=== PATIENT | female | born 1995 | race Caucasian/White ===

== ENCOUNTER 2018-12-13 07:49 | Day surgery (SDC) | payer OTHER | END 2018-12-13 16:01 | disposition home or self-care (01) | LOC: FSGY 07:49 ==

== ENCOUNTER 2018-12-20 05:42 | Inpatient (IN) | payer OTHER ==
--- NOTE | 2018-12-19 21:21 | PDGENHP ---
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 ~Ludinenjoys biking, skiing, walking distances, running and hiking. Miroslava's~right~hip pain~started 3 years ago she was decending a 14er (Ming and~ Kandymarylumarlene), with~no~recalled trauma or injury, and with~no~previous complaints.~ Ludindoes not have~a known history of hip dysplasia. Miroslava has been evaluated by Dr. Maldonado's PA, Dr. Leo and Dr. Grady. Presentation today is of~C-Shaped pattern~right~hip pain. ~The hip~does not~ wake her~at night and~does~click and catch on~her. Sitting~does not present a problem~for her.~Ludindoes~report suffering from lower back pain episodes. Ludinhas~participated in physical therapy (a couple months)~and has~tried other conservative measures including Cortisone~hip injection~(unclear about the efficacy)~,dry needling and massage therapy.~She~has not~received sufficient symptomatic improvement. Miroslava~has~utilized medication for pain management, including NSAID and OTC acetaminophen.~Ludinhas used medication since the pain began. Ludindenies issues with the left~hip. ~ Ludinunderstands that~beverly~has a hip and pelvis problem which should be researched and wishes to get a better understanding of~her~hip status, followed by an establishment of a treatment strategy, hoping~beverly~would be able to get back to~her~well being active life. History: Past medical history:~~ None which is relevant~ Relevant familial history:~None which is relevant~ Past surgical history:~ None Ludinhas never received general anesthesia. I have reviewed, verified and agree with the past medical, surgical, family and social history. Current Medications:~currently has no medications in their medication list. ALLERGIES:~is allergic to sulfa (sulfonamide antibiotics). Objective: Physical Examination: Ludinis 5~feet~5~inches tall and weighs~120~Lbs. Ludinis AAO x3; she~is well- nourished, in NAD. Skin is warm and dry. ~Breathing is non-labored. ~CV with RRR by pulse. Abdomen is soft, NTND. Currently,~she~walks with a~abnormal~antalgic gait favoring LEFT side Trendelenburg sign is~negative~and proprioception~is normal,~both~sides. She~presents~with mild~signs of joint laxity.~Beightons Score:~2 (elbows) Lower spine examination is~negative~for sciatic or femoral nerve irritation with negative~SLR &~femoral stretch tests. Range of motion of the spine is normal~for flexion, extension, and rotations,~with no~associated pain. Strength, Sensation and pulses are~normal -~bilaterally Ankles and knees exams are~normal~and~no~mal-alignment is evident.~ She~has~no leg length discrepancy. Thigh circumference is~symmetric~with no evidence for muscle atrophy~on both~ sides. Hip ROM (degrees): FL ER At 90~hip FL IR At 90~hip FL AB AD EX IR Neutral hip ER Neutral hip R 105 45 40 30 5 5 60 25 L 110 45 35 30 5 5 55 10 Specific hip and pelvis tests: Impingement Test KARLA Roll Add. Longus R +++ +++ Negative Negative L + + Negative Negative Glut. Med ITB Posterior Imp R +++ 5/5 strength +++ 5/5 strength Negative L ++ 5/5 strength ++ 5/5 strength Negative Squeeze test measured~normal Bony Symphysis pubis is~pain free~to touch while concentric activity of the rectus abdominis, does not~produce pain at its insertion. Ilio Psos specific tests are~positive for pain during cycling for~the right hip~ and no snap HF has~weakness no pain~the right hip. Greater trochanteric burse is~pain free~on both hips. Piriformis tests: FAIR is~negative,~with no~local signs of neuritis related to sciatic nerve. SIJs examination is~produces pain on~right side~with~normal~KARLA in relation and local tenderness. Hamstrings tests are~negative~functional contraction and negative~tendinopathy both hips. On a daily basis, the following percentages reflectBria's overall total pain: Deep hip:~80% SIJ:~15% GT: 5% Imaging: Radiology studies which I~have personally reviewed, analyzed and measured are below: XR: AP of the hip and pelvis: Performed in a~good~technique Coccyx~at level of~pubic symphysis Standing~ [place]~Lines are preserved. Minimal~Pathological signs are seen in the Symphysis Pubis.~ Minimal~Pathological signs are seen at the Ischial~tuberosity. ~ Specific measurements show: NSA~ LCE Sourcil~Angle Sharp's angle Lat. Cam Lat. Pincer C.Over~sign Head~Coverage % ATDmm R N 28 0 38 - - - 85 N L N 25 4 45 - - - 85 N Capsule crater sign Pos. wall sign ISS NAD ~~Dysplasia Comments R Negative Negative 18.2~mm Negative L Negative Negative 15.5~mm Negative Sclerosis Sup. Lat. OA Cysts Joint Space-WBZ Joint Space-Medial R Negative Negative Negative 3.1~mm 3.2~mm L Negative Negative Negative 3.0~mm 3.9~mm X Table lateral: Anterior cam lesion is~seen~on both hips. Alpha Angle: ~ Right~52~dergrees Left~50~degrees CT / 3D:~ MEASUREMENTS: Right hip: Lateral center edge angle: 33 degrees Anterior center edge angle: 51 degrees Equatorial acetabular version angle: 27 degrees anteverted. Cranial acetabular version angle: 20 degrees anteverted. Femoral neck shaft angle: 143 degrees Femoral neck version angle: Anteverted 18 degrees Femoral shaft torsion angle: +32 degrees Left hip: Lateral center edge angle: 27 degrees Anterior center edge angle: 48 degrees Equatorial acetabular version angle: 22 degrees anteverted. Cranial acetabular version angle: 18 degrees anteverted. Femoral neck shaft angle: 143 degrees Femoral neck version angle: Anteverted 20 degrees Femoral shaft torsion angle: +28 degrees Impression and plan:~ Miroslava~is a~22 y.o.~active female~suffering from symptomatic~Right~hip pain due to Borderline~hip~dysplasia ~Due to anterior instability~and~Femoroacetabular impingement (MARCO)~Cam type,~with~resultant labral tear causing significant disability to~her~and altering~her~sport and life activities. Physical examination, imaging, and~her~story correspond with the diagnosis mentioned above. I explained that hip dysplasia is a condition wherein the hip joint has excessive play~and instability due to a variety of factors, including the depth and adequacy of the socket, the orientation of the femur bone, and ligament laxity around the hip joint. Dysplasia ranges in severity from borderline to neto, with treatment options being specific to the specific nature of the problem. Left untreated, the instability in the hip joint can cause progressive tearing of the labrum and deterioration of the surface cartilage, ultimately resulting in progressive osteoarthritis of the hip. I explained that femoroacetabular impingement (MARCO - Cam type) arises due to a bony or soft tissue conflict between the femur (ball) and acetabulum (socket) caused by an abnormality in the shape of the femoral head and neck. Over time, repetitive impingement can result in damage to the labrum and adjacent surface cartilage within the socket, ultimately giving rise to progressive osteoarthritis of the hip. I explained that although a labral tear can be a source of pain, it is rarely the root of the problem and typically occurs secondary to an underlying abnormality in the shape and mechanics of the hip joint. I reviewed conservative treatment options for Dysplasia and MARCO including activity modification to avoid positions of impingement or instability, physical therapy, non-steroidal anti-inflammatory medications, and various injections (corticosteroid and PRP) aimed at reducing inflammation in the hip joint or/and preventing dynamic instability and impingement. PRP injections may promote healing and reduce symptoms in certain cases but it will not repair chronically damaged tissue. Although these measures may help to buy time~and reduce current level of symptoms, they are not a definitive solution to the problem given the underlying abnormality in the shape of the hip joint. Patients who have failed conservative management and continue to experience symptoms are candidates for definitive surgical treatment, which may consist of hip arthroscopy alone or in combination with more invasive bony realignment procedures of the hip socket and/or femur called periacetabular osteotomy (KEVEN) or derotational femoral osteotomy (DFO). Hip arthroscopy typically includes treating the labrum with either repair or reconstruction of the torn labrum; as well as addressing the underlying abnormalities by restoring the normal shape to the hip joint. If the cartilage is damaged a Microfracture surgical procedure may also be necessary to help stimulate the growth of fibrocartilage. If a patient requires a labral reconstruction or a Microfracture, the initial rehabilitation from the surgery may take longer, but the terminal clerk results are typically favorable. I reviewed the technical aspects of periacetabular osteotomy (KEVEN) including risks, benefits, and expected course of recovery.~Miroslava~understands that KEVEN is an inpatient procedure carried out through two medium sized incisions on the front and back of the hip joint. The hip socket is cut, realigned, and stabilized with 2 3 internal screws. Risks include infection, bleeding, injury to nearby nerves or vessels, stiffness, persistent pain, instability, failure of bony healing, implant related complications, and venous thromboembolic disease. Rarely, revision surgery may be required to address these problems. Risks, potential complications, side effects and recovery from surgical procedure were discussed in length. We explained how this surgery is an open procedure, and though patients tend to do well in the long-term, it involves significant pain in the first 2-4 weeks post-op and a rather lengthy rehab.~Overall recovery takes approximately 6 12~months depending on the extent of damage and degree of repair. Miroslava~understands that she~will undergo hip arthroscopy 1 week prior to the KEVEN to address damage inside the hip joint. Miroslava~understands that hip arthroscopy and KEVEN are two separate procedures that are best performed one week apart, with the arthroscopy commencing first to "tighten up" any pathology evident in the hip joint (labral repair, etc.) and the KEVEN open procedure occurring 7-10 days later to realign the acetabulum. We spoke at length about the different options Miroslava has moving forward: 1. Do nothing 2. Hip arthroscopy alone, knowing that this treatment strategy would not address her underlying~instability but may generate symptomatic relief, short or terminal clerk 3. Hip arthroscopy followed by KEVEN~or DFO+varus producing osteotomy~ Miroslava~will review the info presented. In order to better evaluate the soft tissues and cartilage of the hip joint, I will order a~current~RIGHT HIP~MRI scan. I suggest another quick visit to discuss strategy after this imaging is complete. Miroslava~will contact us if she~wishes to pursue further treatment in the future. Miroslava~is happy with this plan. I have also supplied~her~with handouts, outlining the expected surgical treatment and rehab involved. I wish~Miroslava~all the best, ~~ Bill Morgan, PAC History Information - Allergies/Home Medication List Allergies/Adverse Reactions: Sulfa (Sulfonamide Antibiotics) Allergy (Verified 12/02/18 15:58) Hives Home Medications: Ibuprofen [Motrin (*)] 200 mg PO DAILY PRN 12/02/18 [Last Taken 2 Weeks Ago ~] Ascorbic Acid [Vitamin C 500 mg (*)] 500 mg PO DAILY 12/08/18 [Last Taken 1 Week Ago ~12/06/18] Multivitamins [Multivitamin (*)] 1 each PO DAILY 12/08/18 [Last Taken 1 Week Ago ~12/06/18] I have personally reviewed and updated: medical history - Social History Smoking Status: Never smoked Review of Systems Review of Systems: Physical Exam Physical Exam:
[2018-12-20] MEDS ORDERED: LR 1,000 ML IV ONE (06:05)
[2018-12-20] MEDS ORDERED: LIDOCAINE 1% 2 ML INJ ID PRN (06:05)
[2018-12-20] MEDS ORDERED: TRANEXAMIC ACID 1,000 MG in NS 100 ML IV ONE (06:05)
[2018-12-20] MEDS ORDERED: ceFAZolin 2 GM/DEXTROSE 100 ML IV ONE (06:05)
[2018-12-20] MEDS ORDERED: PREGABALIN 150 MG CAP PO ONE (06:05)
[2018-12-20] MEDS ORDERED: SCOPOLAMINE HYDROBROMIDE 1 MG/3 DAYS PATCH TD ONE (06:05)
[2018-12-20] MEDS ORDERED: ACETAMINOPHEN 500 MG TAB PO ONE (06:05)
--- NOTE | 2018-12-20 06:44 | PDANEPAE ---
ANE History of Present Illness right hip dyplasia ANE Past Medical History - Cardiovascular History Hx Hypertension: No Hx Arrhythmias: No Hx Chest Pain: No Hx Coronary Artery / Peripheral Vascular Disease: No Hx CHF / Valvular Disease: No Hx Palpitations: No - Pulmonary History Hx COPD: No Hx Asthma/Reactive Airway Disease: No Hx Recent Upper Respiratory Infection: No Hx Oxygen in Use at Home: No Hx Sleep Apnea: No Sleep Apnea Screening Result - Last Documented: Negative - Neurologic History Hx Cerebrovascular Accident: No Hx Seizures: No Hx Dementia: No - Endocrine History Hx Diabetes: No Hypothyroid: No Hyperthyroid: No Obesity: no - Renal History Hx Renal Disorders: No - Liver History Hx Hepatic Disorders: No - Neurological & Psychiatric Hx Hx Neurological and Psychiatric Disorders: No - Cancer History Hx Cancer: No - Congenital Disorder History Hx Congenital Disorders: No - GI History GERD: no Hx Gastrointestinal Disorders: No - Other Health History Other Health History: wears glasses - Chronic Pain History Chronic Pain: Yes (RT HIP) - Surgical History Prior Surgeries: 12/13/18 right hip scope, femoroplasty and labral repair with Adry-Liam ANE Review of Systems Review of systems is: negative Review of Systems: - Exercise capacity METS (RN): 6 METS ANE Patient History - Allergies Allergies/Adverse Reactions: Sulfa (Sulfonamide Antibiotics) Allergy (Verified 12/02/18 15:58) Hives - Home Medications Home medications: home medication list seen and reviewed Home Medications: Ibuprofen [Motrin (*)] 200 mg PO DAILY PRN 12/02/18 [Last Taken 2 Weeks Ago ~] Ascorbic Acid [Vitamin C 500 mg (*)] 500 mg PO DAILY 12/08/18 [Last Taken 1 Week Ago ~12/06/18] Multivitamins [Multivitamin (*)] 1 each PO DAILY 12/08/18 [Last Taken 1 Week Ago ~12/06/18] - NPO status NPO Status: no food or drink >8 hours - Anes Hx Anes Hx: no prior problems - Smoking Hx Smoking Status: Never smoked - Alcohol Use Alcohol Use: None - Family Anes Hx Family Anes Hx: none Family Hx Anesthesia Complications: none ANE Labs/Vital Signs - Vital Signs Height: 165.1 cm Weight: 54.431 kg ANE Physical Exam - Airway Neck exam: FROM Mallampati Score: Class 2 Mouth exam: normal dental/mouth exam - Pulmonary Pulmonary: no respiratory distress, clear to auscultation - Cardiovascular Cardiovascular: regular rate and rhythym, no murmur, rub, or gallop - ASA Status ASA Status: I ANE Anesthesia Plan Anesthesia Plan: general endotracheal anesthesia
[2018-12-20] MEDS ORDERED: CITRATE DEXTROSE SOLN 500 ML BAG ONE (06:46)
[2018-12-20] MEDS ORDERED: MIDAZOLAM 2 MG/2 ML VIAL IVP ONE (06:50)
[2018-12-20] MEDS ORDERED: morphINE PF 5 MG/10 ML INJ ONE (07:04)
[2018-12-20] MEDS ORDERED: PROPOFOL/EMULSION 500 MG/50 ML BOTTLE IV ONE (07:04)
[2018-12-20] MEDS ORDERED: LIDOCAINE 2% 5 ML SDV ONE (07:06)
[2018-12-20] MEDS ORDERED: ROCURONIUM 100 MG/10 ML VIAL ONE ×2 (07:07→08:56)
[2018-12-20] MEDS ORDERED: ePHEDrine SULFATE 25 MG/5 ML SYR ONE (07:48)
[2018-12-20] MEDS ORDERED: PHENYLEPHRINE HCL 100 MCG/ML SYR ONE (08:58)
[2018-12-20] MEDS ORDERED: fentaNYL 250 MCG/5 ML INJ ONE (08:58)
[2018-12-20] MEDS ORDERED: ONDANSETRON 4 MG/2 ML VIAL ONE (11:28)
[2018-12-20] MEDS ORDERED: DEXAMETHASONE 4 MG/ML VIAL ONE (11:28)
[2018-12-20] MEDS ORDERED: GLYCOPYRROLATE 0.2 MG/1 ML VIAL ONE ×2 (11:34)
[2018-12-20] MEDS ORDERED: LR 500 ML IV PRN (11:38)
[2018-12-20] MEDS ORDERED: DIAZEPAM 5 MG/ML 1 ML SYR IVP PRN (11:38)
[2018-12-20] MEDS ORDERED: HYDROmorphONE/DILAUDID 2 MG/ML INJ IVP PRN (11:38)
[2018-12-20] MEDS ORDERED: NALOXONE HCL 0.4 MG/ML INJ IVP PRN ×2 (11:38→12:55)
[2018-12-20] MEDS ORDERED: fentaNYL 100 MCG/2 ML INJ IVP PRN (11:38)
--- NOTE | 2018-12-20 11:38 | POSTANESTH ---
Post Anesthetic Evaluation Cardiovascular Status: Normal, Stable Respiratory Status: Normal, Stable Level of Consciousness/Mental Status: Can Participate in Eval Pain Control: Adequate, Prn Tx Ordered Nausea/Vomiting Control: Adequate, Prn Tx Ordered Complications Possibly Related to Anesthesia: None Noted
[2018-12-20] MEDS ORDERED: LACTULOSE 20 GM/30 ML UDCUP PO PRN (12:55)
[2018-12-20] MEDS ORDERED: ONDANSETRON DISINTEGRATING 4 MG TAB PO PRN (12:55)
[2018-12-20] MEDS ORDERED: MAGNESIUM HYDROXIDE 30 ML UDCUP PO PRN (12:55)
[2018-12-20] MEDS ORDERED: diphenhydrAMINE 25 MG CAP PO PRN (12:55)
[2018-12-20] MEDS ORDERED: BISACODYL 10 MG SUPP PR PRN (12:55)
[2018-12-20] MEDS ORDERED: ONDANSETRON 4 MG/2 ML VIAL IVP PRN (12:55)
[2018-12-20] MEDS ORDERED: oxyCODONE IR 15 MG TAB PO PRN (12:58)
--- NOTE | 2018-12-20 13:07 | PDMN ---
Medical Necessity Medical necessity: Pt meets inpt criteria per MD order and Musculoskeltel disease GRG, op: R periacetabular osteotomy, [facility] IP only list, inpt pre- approval AUTH# [id number]. 22 y/o w/R hip dysplasia admitted for above surgery and post-op care.
[2018-12-20] MEDS: oxyCODONE IR 5 MG TAB PO SCH ×3 (13:36→21:49)
[2018-12-20] MEDS: HYDROmorphONE/DILAUDID 6 MG/30 ML PCA IV PRN (13:39)
[2018-12-20] MEDS: NS 1,000 ML IV SCH ×2 (13:46→21:49)
[2018-12-20] MEDS: NAPROXEN SODIUM 220 MG TAB PO SCH ×2 (15:51→21:48)
[2018-12-20] MEDS: [UNRECOGNIZED DRUG - OTHER] PO SCH (19:17)
[2018-12-20] MEDS: SENNOSIDES/DOCUSATE SODIUM TAB PO SCH (21:49)
--- NOTE | 2018-12-20 23:16 | SUROPNOTE ---
[facility] Operative Report - Surgery Surgery was performed at [facility] on~12/20/18~ Diagnosis:~Right 1. Hip Acetabular Dysplasia ~ Operation: Right~Vanessa Acetabular Osteotomy (KEVEN) Surgeon: Nico Lindsey MD Vinyl Installer:~~Galina Briones MD Anesthetic: General + spinal Procedure: General anesthetic. Antibiotics given. Cell saver in use. Fluoroscopy. Phase 1: Position lateral, diagonal skin incision between ischial tuberosity and greater trochanter as for posterior hip approach. Blunt split of glut max fibers. Identification of fat pad overlying sciatic nerve. Exposure of sciatic nerve under fat pad, gently retracting it away-medially to ischial tuberosity. Exposure of subcotoloid fossa proximal to short rotators. UsingPrecision saw, osteotomy of subcotoloid xvoiu19-16 mm short of (lateral to) thesciatic notch. Closure of lateral cut. Patient is turned supine. Phase 2: Skin incision just distal to ASIS. Using diathermy the iliac spine was exposed and inguinal ligament + Sartorious were retracted medially, taking the LFCN with them, protecting it. Inner ilium was dissected from iliacus muscle bluntly , with a cob and swab. Dissection continued towards lateral superior ramus pubis. Using fluoroscopy an osteotomy of lateral superior ramus, just medial to tear drop, was performed with~curved fish mouth osteotome. Phase 3: Osteotomy lines of the ilium were marked with diathermy as pre planned according to XR/CT and expected correction of acatabulum. 2 Shanz screws were drilled into central acetabular fragment, corresponding with planned correction angles, in order to mobilize central acetabular fragment after osteotomy is complete. ~Iliac osteotomy was performed with reciprocating saw and the main acetabular fragment was moved to realign weight bearing position. After confirmation of correction using fluoroscopy in AP and false profile planes, the fragment was fixed with 2 -~5.5mm~~full threaded~screws~and 1 -~4mm~~full threaded~screw. Inguinal ligament and Sartorious were attached back to ASIS through drill holes. Incision was closed according to soft tissue layers. Skin was closed with~subdermal Monocryl. Final fluoro shots were obtained to confirm position/correction. After surgery~Miroslava~moved both lower limbs and had no NV motor compromise. Specimen - none Bleeding -~300ml Complication -~135none Evaluation under anesthesia: IR at 90 degrees hip flexion prior to KEVEN was~45~degrees and after KEVEN was 30~ degrees. Bleeding:~300~cc into cell-saver, 135~of blood products were returned to patient. Post op instructions: 1.~toe touch~weight bearing till post op Xr then FWB~crutches for 6 weeks 2. Epidural analgesia for 24-48 hours 3. Continuous SCD 4. Aspirin 81 mg X1 day once Epidural is discontinued 5. Avoid hip flexion past 90 and hip External rotation. 6. PT according to my recommendations at follow up visit Kind regards, Dr. Nico Lindsey .
[2018-12-21] MEDS: oxyCODONE IR 5 MG TAB PO SCH ×7 (01:57→21:19)
[2018-12-21] MEDS: PANTOPRAZOLE SODIUM 40 MG TAB PO SCH (08:41)
[2018-12-21] MEDS: NAPROXEN SODIUM 220 MG TAB PO SCH ×3 (08:42→21:19)
[2018-12-21] MEDS: SENNOSIDES/DOCUSATE SODIUM TAB PO SCH ×2 (08:42→21:19)
[2018-12-21] MEDS: oxyCODONE IR 5 MG TAB PO PRN (10:37)
[2018-12-21] MEDS ORDERED: METHOCARBAMOL 750 MG TAB ONE (18:44)
--- NOTE | 2018-12-21 19:34 | GCON ---
[f rep st] CONSULTATION REFERRING PHYSICIAN: Nico Lindsey MD REASON FOR CONSULTATION: Medical management. HISTORY OF PRESENT ILLNESS: The patient is a 22-year-old female who has no significant past medical history, who had a periacetabular ostomy on the right side for ongoing hip dysplasia. She had a labral tear repair performed last week. 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 Normally, she is very active. She likes to hike, ski, mountain bike ride. She also did track in high school. During my interview, she is saying her pain is at a level 5 on a scale of 5 to 10. PAST MEDICAL HISTORY: None. PAST SURGICAL HISTORY: Briggs teeth extraction. SOCIAL HISTORY: She lives at home with her parents. 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 Her plan is to go to graduate school this fall to become an occupational therapist. She does not smoke. She enjoys an occasional glass of wine a few times a week. FAMILY HISTORY: Parents are healthy. ALLERGIES: Sulfa causes hives. REVIEW OF SYSTEMS: A 10-point review of systems was performed and was negative other than pertinent positives in HPI and past medical history. PHYSICAL EXAM: GENERAL: The patient is a 22-year-old female who appears to be an overall healthy person. VITAL SIGNS: Blood pressure is 98/45, respiratory rate is 18, heart rate is 78, O2 saturation on room air 94%, temperature is 97.9 Celsius. EYES: Pupils are equal and reactive. ENT: Normal ears, hearing intact. NECK: Trachea is midline. CARDIOVASCULAR: Regular rate and rhythm. No murmurs, rubs, or gallops noted. CHEST/LUNGS: Normal respiratory effort. Clear without wheezing or rales. ABDOMEN: Soft, nontender. She has a Maharaj catheter in place. SKIN: Warm and dry. Her right hip and upper thigh areas are swollen without any drainage from her incisions. MUSCULOSKELETAL: She is overall weak. PSYCHIATRIC: She is alert and oriented. Normal mood and affect. Normal judgment, insight and normal memory. DATA: Reviewed. I reviewed her laboratory data this morning, which showed some mild anemia. ASSESSMENT/PLAN: 1. Hip dysplasia, status post a right periacetabular osteotomy. Care per the surgical team. 2. Pain due to this. Will add p.r.n. Robaxin to see if this helps with the pain. She is using a INJURY/SAFETY HAZARD ASSESSMENT as well as oral pain med 4. Anemia expected blood loss. Will recheck her hemoglobin and hematocrit in the morning. 5. Hypotension. She is asymptomatic. If she should become symptomatic, could give her a fluid bolus. 6. Deep venous thrombosis prophylaxis. Aspirin therapy. Thank you for this consultation. We will continue to follow the patient during her hospital stay. /[id number]/MODL MTDD
--- NOTE | 2018-12-21 21:01 | POSTANESTH ---
Post Anesthetic Evaluation Cardiovascular Status: Normal, Stable Respiratory Status: Normal, Stable Level of Consciousness/Mental Status: Can Participate in Eval, Alert and Oriented Pain Control: Adequate, Prn Tx Ordered Nausea/Vomiting Control: Adequate, Prn Tx Ordered Complications Possibly Related to Anesthesia: None Noted (Duramorph Spinal Follow-Up, patient doing well no complaints)
[2018-12-21] MEDS: [UNRECOGNIZED DRUG - OTHER] PO SCH (21:18)
[2018-12-21] MEDS: DIAZEPAM 2 MG TAB PO PRN (21:19)
[2018-12-21] MEDS: HYDROmorphONE/DILAUDID 6 MG/30 ML PCA IV PRN (23:02)
[2018-12-22] MEDS: oxyCODONE IR 5 MG TAB PO SCH ×6 (02:04→21:53)
[2018-12-22] MEDS: SENNOSIDES/DOCUSATE SODIUM TAB PO SCH ×2 (08:50→20:17)
[2018-12-22] MEDS: NAPROXEN SODIUM 220 MG TAB PO SCH ×3 (08:51→21:53)
[2018-12-22] MEDS: PANTOPRAZOLE SODIUM 40 MG TAB PO SCH (08:51)
[2018-12-22] MEDS: METHOCARBAMOL 750 MG TAB PO PRN ×2 (08:57→17:18)
[2018-12-22] MEDS: DIAZEPAM 2 MG TAB PO PRN ×2 (10:53→20:16)
--- NOTE | 2018-12-22 11:29 | ASMTCMCOM ---
CM Note CM Note Notes: Pt had planned R KEVEN. Pt resides with parent. Will stay on main level of home. PT rec home/outpatient. Anticipate pt will d/c when medically stable. No CM d/c needs identified. CM available for changes/needs. Date Signed: 12/22/2018 11:28 AM Electronically Signed By:JAREN Fitch
[2018-12-22] MEDS: ASPIRIN EC 81 MG TAB PO SCH (12:55)
[2018-12-22] MEDS: POLYETHYLENE GLYCOL 3350 17 GM PKT PO PRN (13:39)
--- NOTE | 2018-12-22 19:37 | HOSPPROG ---
Hospitalist Progress Note Objective: Vital Signs Temp Pulse Resp BP Pulse Ox 98.2 F 88 18 113/55 L 97 12/22/18 15:13 12/22/18 15:13 12/22/18 15:13 12/22/18 15:13 12/22/18 15:13 Laboratory Results 12/22/18 04:38 12/21/18 04:40 12/21/18 12/22/18 12/23/18 11:59 11:59 11:59 Intake Total 3150 1000 350 Output Total 3150 2100 1700 Balance 0 -1100 -1350
[2018-12-22] MEDS: [UNRECOGNIZED DRUG - OTHER] PO SCH (20:16)
[2018-12-23] MEDS: oxyCODONE IR 5 MG TAB PO SCH ×6 (02:05→22:16)
--- NOTE | 2018-12-23 05:41 | SOAPPROG ---
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 At that time she was well pain controlled with [employer] INSTRUCTOR and Oxycodone. She has been up walking around her room. She denies any cp, sob or nausea. Carol Ann is still in. Objective: Vital Signs Temp Pulse Resp BP Pulse Ox 36.8 C 87 17 111/46 L 96 12/23/18 04:00 12/23/18 04:00 12/23/18 04:00 12/23/18 04:00 12/23/18 04:00 Laboratory Results 12/22/18 04:38 12/21/18 04:40 12/21/18 12/22/18 12/23/18 05:59 05:59 05:59 Intake Total 3150 1000 1450 Output Total 3150 2100 3950 Balance 0 -1100 -2500 Well appearing in NAD Right hip: dressings clean dry intact ecchymosis and edema thigh numbness full ROM of foot and ankle NVI distally ICD10 Worksheet Patient Problems: Problems Problem Status Onset Post-operative pain Acute - ICD10 Problem Qualifiers (1) Post-operative pain
[2018-12-23] MEDS: POLYETHYLENE GLYCOL 3350 17 GM PKT PO PRN (08:54)
[2018-12-23] MEDS: SENNOSIDES/DOCUSATE SODIUM TAB PO SCH ×2 (08:55→22:16)
[2018-12-23] MEDS: METHOCARBAMOL 750 MG TAB PO PRN ×2 (08:55→14:05)
[2018-12-23] MEDS: PANTOPRAZOLE SODIUM 40 MG TAB PO SCH (08:55)
[2018-12-23] MEDS: ASPIRIN EC 81 MG TAB PO SCH (08:55)
[2018-12-23] MEDS: NAPROXEN SODIUM 220 MG TAB PO SCH ×3 (08:56→22:16)
[2018-12-23] MEDS: ACETAMINOPHEN 325 MG TAB PO PRN ×2 (08:57→14:00)
[2018-12-23] MEDS: DIAZEPAM 2 MG TAB PO PRN ×2 (10:36→20:44)
[2018-12-23] MEDS: [UNRECOGNIZED DRUG - OTHER] PO SCH (10:42)
[2018-12-23] MEDS ORDERED: ACETAMINOPHEN 500 MG TAB PO PRN (16:19)
[2018-12-23] MEDS ORDERED: HYDROmorphONE/DILAUDID 2 MG TAB PO PRN (16:20)
[2018-12-23] MEDS ORDERED: HYDROmorphONE/DILAUDID 4 MG TAB PO SCH (16:30)
--- NOTE | 2018-12-23 23:54 | HOSPPROG ---
Hospitalist Progress Note Objective: Vital Signs Temp Pulse Resp BP Pulse Ox 98.4 F 86 18 102/52 L 97 12/23/18 16:00 12/23/18 16:00 12/23/18 16:00 12/23/18 16:00 12/23/18 16:00 Laboratory Results 12/23/18 05:00 12/21/18 04:40 12/22/18 12/23/18 12/24/18 11:59 11:59 11:59 Intake Total 1000 1450 Output Total 5816 7459 1500 Balance -1100 -3792 -1500 ICD10 Worksheet Patient Problems: Problems Problem Status Onset Post-operative pain Acute
[2018-12-24] MEDS: oxyCODONE IR 5 MG TAB PO SCH ×4 (02:10→13:58)
[2018-12-24] MEDS: METHOCARBAMOL 750 MG TAB PO PRN (05:51)
[2018-12-24] MEDS ORDERED: CALCIUM CARBONATE 500 MG CHEWABLE TAB PO PRN (06:02)
--- NOTE | 2018-12-24 07:39 | SOAPPROG ---
SOAP Progress Note Assessment/Plan: Assessment: Plan: 12/24/18 07:36 Saw Miroslava and mom, POD 3, Hany night She is doing well, was a bit surprised by pain level but we have no matched expectations. NV intact, did PT/OT, moving along as expected. Post op XR looks good for alignment and no change since surgery. Will discharge when ready Dr Lindsey Objective: Vital Signs Temp Pulse Resp BP Pulse Ox 37.1 C 93 15 99/50 L 94 12/24/18 00:00 12/24/18 00:00 12/24/18 00:00 12/24/18 00:00 12/24/18 00:00 Laboratory Results 12/23/18 05:00 12/21/18 04:40 12/23/18 12/24/18 12/25/18 05:59 05:59 05:59 Intake Total 1450 Output Total 1952 7200 Balance -1333 -1379 ICD10 Worksheet Patient Problems: Problems Problem Status Onset Post-operative pain Acute
[2018-12-24 08:33] VITALS: BP 96/56
[2018-12-24] MEDS: SENNOSIDES/DOCUSATE SODIUM TAB PO SCH (08:36)
[2018-12-24] MEDS: NAPROXEN SODIUM 220 MG TAB PO SCH (08:36)
[2018-12-24] MEDS: PANTOPRAZOLE SODIUM 40 MG TAB PO SCH (08:36)
[2018-12-24] MEDS: ASPIRIN EC 81 MG TAB PO SCH (08:36)
[2018-12-24] MEDS: POLYETHYLENE GLYCOL 3350 17 GM PKT PO PRN (09:04)
[2018-12-24] MEDS: DIAZEPAM 2 MG TAB PO PRN (11:15)
[2018-12-24] MEDS: oxyCODONE IR 5 MG TAB PO PRN (11:15)
--- NOTE | 2018-12-24 12:07 | HOSPPROG ---
Hospitalist Progress Note Assessment/Plan: 1. post op anemia- revwd high iron foods with her (not vegetarian or vegan). Should have PCP check in 6 weeks. Objective: Vital Signs Temp Pulse Resp BP Pulse Ox 98.5 F 84 16 96/56 L 96 12/24/18 08:00 12/24/18 08:00 12/24/18 08:00 12/24/18 08:00 12/24/18 08:00 Laboratory Results 12/23/18 05:00 12/21/18 04:40 12/23/18 12/24/18 12/25/18 11:59 11:59 11:59 Intake Total 1450 500 Output Total 5825 1500 Balance -4375 -1000 ICD10 Worksheet Patient Problems: Problems Problem Status Onset Post-operative pain Acute
== END 2018-12-24 15:13 | disposition home or self-care (01) | DRG 517 ==
LOC: F3N 05:42 → EDSTATUS 07:15 → F3N 12:44
PROVIDERS: ADMIT Orthopaedic Surgery Sports Medicine; ATTEND Orthopaedic Surgery Sports Medicine
PROC: 0QS504Z Reposition Left Acetabulum with Internal Fixation Device, Open Approach (ICD-10-PCS; principal; 2018-12-20 07:15)
DX: M25.851 Other specified joint disorders, right hip (principal)
CPT/HCPCS: 97116-GP; 97162-GP; 97166-GO; 97530-GO; 97530-GP; 97535-GO; C1713; J0690; J1100; J1170; J2250; J2274; J2370; J2405; J2704; J3010; J3360